=== PATIENT | female | born 1935 | race Caucasian/White ===

== ENCOUNTER 2022-05-09 16:55 | Inpatient (IN) | payer OTHER, BC ==
[2022-05-09] MEDS ORDERED: SODIUM CHLORIDE 1,000 ML IV SCH (17:15)
[2022-05-09 17:48] LABS: HEMATOCRIT 53.3 % (32.4-45.2); HEMOGLOBIN 18.2 G/dL (10.7-15.3); MCH 29.6 pg (25.7-33.7); MCHC 34.1 g/dl (32.0-36.0); MEAN CELL VOLUME 86.9 fl (80-96); MEAN PLT VOLUME 8.3 fl (7.5-11.1); PLATELET COUNT 287.1 10^3/uL (134-434); RBC 6.13 10^6/uL (3.60-5.2); RDW 15.2 % (11.6-15.6); WHITE BLOOD COUNT 20.1 10^3/uL (4.0-10.8)
[2022-05-09 17:56] LABS: ALBUMIN 4.2 g/dl (3.4-5.0); BILIRUBIN,TOTAL 1.9 mg/dl (0.2-1); CALCIUM 11.3 mg/dl (8.5-10); CREATININE 3.1 mg/dl (0.55-1.3); TOT PROT 7.4 g/dl (6.4-8.2)
[2022-05-09] MEDS ORDERED: FAMOTIDINE 20 MG/50 ML IVPB 20 MG/50 ML MG IVPB ONE (18:36)
[2022-05-09] MEDS ORDERED: LACTATED RINGERS SOLUTION 1,000 ML/1,000 ML INFUS.BAG IV SCH (19:00)
[2022-05-09 19:38] LABS: LACTIC ACID 7.6 mmol/L (0.4-2.0)
[2022-05-09] MEDS ORDERED: LACTATED RINGERS SOLUTION 1000 ML INFUS.BAG IV ONE (19:51)
[2022-05-09 20:58] LABS: EPITHELIAL CELLS FEW /hpf
[2022-05-09] MEDS ORDERED: PIPERACILLIN/TAZOB 3.375 GM 3.375 GM in DEXTROSE 5%-WATER - 50 ML IVPB ONE (22:36)
[2022-05-09] MEDS ORDERED: VANCOMYCIN 1 GM in D5W (PRE-DOCKED) 1,000 MG/250 ML IVPB ONE (22:36)
[2022-05-09] MEDS ORDERED: PIPERACILLIN/TAZOBACTAM 3.375 GM VIAL IVPB ONE (22:37)
[2022-05-09] MEDS ORDERED: VANCOMYCIN 1,000 MG VIAL (RESTRICTED TO ID ONLY) ONE ×2 (22:37→23:18)
[2022-05-10 00:34] LABS: LACTIC ACID 9.7 mmol/L (0.4-2.0)
[2022-05-10] MEDS ORDERED: LACTATED RINGERS SOLUTION 1,000 ML/1,000 ML INFUS.BAG IV STA ×2 (02:05→04:38)
[2022-05-10] MEDS ORDERED: DEXTROSE 5%-WATER - 1,000 ML IV SCH (02:15)
[2022-05-10 02:46] LABS: BASO % 0.1 % (0-2.0); HEMATOCRIT 54.4 % (32.4-45.2); LYMPH % 7.6 % (8-40); MCHC 31.3 g/dl (32.0-36.0); MEAN CELL VOLUME 89.5 fl (80-96); MEAN PLT VOLUME 8.2 fl (7.5-11.1); MONO % 3.9 % (3.8-10.2); NEUT % 88.4 % (42.8-82.8); PLATELET COUNT 129 10^3/uL (134-434); RBC 6.08 M/mm3 (3.60-5.2); RDW 16.2 % (11.6-15.6); WHITE BLOOD COUNT 9.5 K/mm3 (4.0-10.0)
[2022-05-10 03:07] LABS: INR 1.52 (0.83-1.09); PROTHROMBIN TIME (PATIENT) 17.6 SEC (9.7-13.0)
[2022-05-10 03:43] LABS: CHLORIDE 122 mmol/L (98-107)
[2022-05-10 03:43] LABS: ARTERIAL BLD GAS O2 SATURATION 94.5 % (95-98); ARTERIAL BLOOD GAS BASE EXCESS -10.7 mmol/L (-2-2); ARTERIAL BLOOD GAS PO2 77.4 mmHg (80-100); ARTERIAL BLOOD GAS pH 7.307 (7.350-7.450)
[2022-05-10 03:45] LABS: BLOOD UREA NITROGEN 89.1 mg/dL (7-18); CALCIUM 9.7 mg/dL (8.5-10.1); CO2 21 mmol/L (21-32); GLUCOSE,RANDOM 90 mg/dL (74-106); MAGNESIUM 2.5 mg/dL (1.8-2.4)
[2022-05-10 03:48] LABS: PHOSPHOROUS 4.5 mg/dL (2.5-4.9)
[2022-05-10 03:49] LABS: CREATININE 3.3 mg/dL (0.55-1.3)
[2022-05-10 04:19] LABS: ANION GAP 16 MMOL/L (8-16)
[2022-05-10 04:23] LABS: SODIUM 159 mmol/L (136-145)
[2022-05-10] MEDS ORDERED: PHENYLEPHRINE NS PREMIX 50,000 MCG/500 ML BAG IVPB SCH (04:45)
[2022-05-10] MEDS ORDERED: ASPIRIN SUPPOSITORY 600 MG SUPP.RECT RC ONE (05:39)
[2022-05-10] MEDS ORDERED: HEPARIN NA (PORCINE) 5,000 UNITS/ML 1ML VIAL IVPUSH PRN ×2 (05:40)
[2022-05-10] MEDS ORDERED: HEPARIN INFUSION - 25,000 UNITS/500 ML INFUS.BAG IVPB SCH (05:45)
[2022-05-10] MEDS ORDERED: ASPIRIN 300 MG SUPP.RECT RC ONE (07:00)
[2022-05-10 09:04] LABS: EPI CELLS 6 /uL (0-25.1); HYALINE CASTS 17 /uL (0-3.1); URINE APPEARANCE CLOUDY; URINE BILIRUBIN 1+ (NEGATIVE); URINE COLOR DK YELLOW; URINE GLUCOSE (UA) NEGATIVE (NEGATIVE); URINE KETONE NEGATIVE (NEGATIVE); URINE LEUK ESTERASE 1+ (NEGATIVE); URINE NITRITE NEGATIVE (NEGATIVE); URINE PROTEIN 1+ (NEGATIVE); URINE RBC 20 /uL (0-23.9); URINE WBC 226 /uL (0-25.8)
[2022-05-10] MEDS ORDERED: HEPARIN NA (PORCINE) 5,000 UNITS/ML 1ML VIAL SQ SCH (10:00)
[2022-05-10 10:39] LABS: URINE BACTERIA 7018 /uL (0-1359); YEAST NEGATIVE (NEGATIVE)
[2022-05-10] MEDS ORDERED: VASOPRESSIN 40 UNITS/100 ML BAG IV SCH (11:45)
[2022-05-10] MEDS ORDERED: NOREPINEPHRINE BITARTRATE 4 MG/4 ML ML IV ONE (11:53)
[2022-05-10] MEDS ORDERED: NOREPINEPHRINE BITARTRATE 16,000 MCG in SODIUM CHLORIDE 484 ML IV SCH (12:00)
[2022-05-10 12:20] VITALS: PULSE 48
[2022-05-10 14:32] VITALS: BP 84/66; RESP 24; TEMP 96.5
[2022-05-10 14:52] LABS: N-TERMINAL BNP 3737.4 pg/ml (5-450)
== END 2022-05-10 13:00 | disposition expired | DRG 871 ==
LOC: SUPCPDRO 16:55 → FER 16:55 → JICU 05-10 01:30
PROVIDERS: ADMIT Internal Medicine Pulmonary Disease; ATTEND Internal Medicine Pulmonary Disease
PROC: 5A1935Z Respiratory Ventilation, Less than 24 Consecutive Hours (ICD-10-PCS; principal; 2022-05-10)
PROC: 0BH17EZ Insertion of Endotracheal Airway into Trachea, Via Natural or Artificial Opening (ICD-10-PCS; 2022-05-10)
DX: A41.9 Sepsis, unspecified organism (principal); E11.00 Type 2 diabetes mellitus with hyperosmolarity without nonketotic hyperglycemic-hyperosmolar coma (NKHHC); I21.4 Non-ST elevation (NSTEMI) myocardial infarction; J96.00 Acute respiratory failure, unspecified whether with hypoxia or hypercapnia; R65.21 Severe sepsis with septic shock; G92.8 Other toxic encephalopathy; J69.0 Pneumonitis due to inhalation of food and vomit; E87.20 Acidosis, unspecified; N17.9 Acute kidney failure, unspecified; E87.0 Hyperosmolality and hypernatremia; M62.82 Rhabdomyolysis; R64 Cachexia; Z68.1 Body mass index [BMI] 19.9 or less, adult; F03.90 Unspecified dementia, unspecified severity, without behavioral disturbance, psychotic disturbance, mood disturbance, and anxiety; I10 Essential (primary) hypertension; E78.5 Hyperlipidemia, unspecified; D72.829 Elevated white blood cell count, unspecified; R62.7 Adult failure to thrive; E86.0 Dehydration
CPT/HCPCS: 0241U-QW; 31500; 36415; 36600; 70450-TC; 71045-TC-FY; 72125-TC; 76775-TC; 80048; 80053; 81003; 81015; 82550; 82553; 82803; 83605; 83735; 83880; 84100; 84484; 85025; 85027; 85610; 85730; 86850; 86900; 86901; 87040; 87086; 87186; 93005; 93010; 94002; 99285-25; J1644